=== PATIENT | female | born 1990 | race Caucasian/White ===

== ENCOUNTER 2021-03-20 21:58 | Emergency (ER) | payer OTHER, SELFPAY ==
--- NOTE | ~2021-03-20 | XR_ITS ---
EXAMINATION: XR chest 1V portable INDICATION: Shortness of breath, COVID 19 positive TECHNIQUE: Portable AP chest at 2221 hours COMPARISON: None available FINDINGS: There are minimal airspace opacities of the left lung base. No pleural effusion or pneumoth orax is identified. The cardiomediastinal silhouette is normal. A calcified nodule of the left midlun g zone is consistent with old granulomatous disease. IMPRESSION: 1. Left basilar airspace opacity, consistent with atelectasis versus pneumonia. Reviewed, dictated and finalized at location A.
[2021-03-20 22:04] VITALS: BP 135/96; PULSE 81; RESP 16; O2SAT 100
--- NOTE | 2021-03-20 22:08 | ECG_ITS ---
Measurements Intervals [place] Rate: 73 P: 53 [place]: 164 QRS: 43 QRSD: 87 T: 31 QT: 354 QTc: 392 Interpretive Statements SINUS RHYTHM NORMAL ECG Electronically Signed On 03-21-2021 7:37:18 CDT by Mo Llamas D.O.
[2021-03-20 22:48] LABS: Basophils Percent Auto 0.3 % (0.2-1.2); Eosinophils Percent Auto 1.3 % (0-4.4); Hematocrit 42.5 % (37.0-47.0); Hemoglobin 14.1 g/dL (12.0-15.0); Immature Granulocyte Absolute 0.01 K/mm3 (0.00-0.031); Immature Granulocyte Percent A 0.3 % (0-0.5); Lymphocytes Absolute Auto 1.95 K/mm3 (0.9-3.2); Lymphocytes Percent Auto 60.9 % (18.3-44.2); Mean Corpuscular HGB Conc 33.2 g/dl (32-36); Mean Corpuscular Hemoglobin 28.9 pg (26-34); Mean Corpuscular Volume 87.1 fl (80-100); Mean Platelet Volume 9.6 fl (7.4-10.4); Monocytes Absolute Auto 0.4 K/mm3 (0.1-0.6); Monocytes Percent Auto 12.2 % (2.6-8.5); Neutrophils Absolute Auto 0.8 K/mm3 (1.3-6.7); Platelet Count Result 174 k/mm3 (150-375); Red Blood Count 4.88 M/mm3 (4.2-5.4); Red Cell Distribution Width 11.9 % (11.5-14.5); White Blood Count 3.2 K/mm3 (4.5-10.0)
[2021-03-20 22:56] LABS: Alanine Aminotransferase 60 U/L (4-35); Albumin Level 4.6 g/dL (3.5-5.1); Alkaline Phosphatase 66 U/L (38-126); Anion Gap 11 mmol/L (8-16); Aspartate Amino Transferase 64 U/L (14-36); Bilirubin,Total 0.4 mg/dL (0.2-1.3); Blood Urea Nitrogen 7 mg/dL (7-17); Calcium 9.3 mg/dL (8.4-10.2); Carbon Dioxide 25 mmol/L (22-30); Chloride 104 mmol/L (98-107); Estimated CRCL calculation 146 ml/min; Estimated Glomerular Filt Rate > 60; Glucose 94 mg/dL (65-105); Potassium 3.6 mmol/L (3.4-5.0); Sodium 140 mmol/L (137-145)
--- NOTE | 2021-03-20 22:57 | ED.GENADULT ---
HPI - General Adult General Chief complaint: Upper Respiratory Infection Stated complaint: I have Covid Time Seen by Provider: 03/20/21 22:00 Source: patient History of Present Illness HPI narrative: Patient is a 30 y/o female complaining of moderate SOB starting tonight. There is no alleviating or exacerbating factor. She also has some cough. She had fever 2 days ago, but not today. She test positive for COVID 2 days ago. Related Data Home Medications Medication Instructions Recorded Confirmed metformin mg 03/20/21 Allergies Allergy/AdvReac Type Severity Reaction Status Date / Time No Known Allergies Allergy Unverified 03/20/21 23:09 Review of Systems Constitutional: Constitutional: Denies chills, Denies fever(s), Reports headache(s) and Reports weakness Eyes: Eyes: Denies blurry vision ENT: Reports headache(s) and Denies neck pain Cardiovascular: Cardiovascular: Denies chest pain and Reports dyspnea Respiratory: Respiratory: Reports cough and Reports dyspnea Gastrointestinal: Gastrointestinal: Denies abdominal pain, Denies diarrhea, Denies nausea and Denies vomiting Genitourinary: Genitourinary: Denies hematuria and Denies dysuria Musculoskeletal: Musculoskeletal: Denies back pain and Denies neck pain Neurologic: Reports dizziness, Reports headache(s) and Reports weakness PMFSH Social History Social History Smoking status: Never smoker Alcohol intake: current Exam Const: General: no acute distress and well developed Orientation/consciousness: oriented to person, oriented to place, oriented to time and patient oriented x3 HENMT: Head: normocephalic Ears: external ears normal General nose exam: Normal external nose present Eyes: General: appearance normal, both eyes and all related structures Conjunctivae: conjunctivae normal Neck: Neck: normal visual inspection and full ROM Chest: Chest palpation & inspection: normal inspection of the chest and no tenderness Resp: Effort & Inspection: normal respiratory effort Auscultation: clear to auscultation bilaterally Cardio: Rate: regular rate Rhythm: regular rhythm GI: GI Palp: No abdominal tenderness and Yes Soft to palpation Skin: General skin exam: normal color and turgor normal Neuro: General: oriented to person, oriented to place, oriented to time and patient oriented x3 Cognition (Neuro): normal cognition Extrem: General: normal to inspection, full ROM and no pedal edema Psych: Appearance: grossly normal Mental Status: mental status grossly normal Affect: normal affect Course Vital Signs Vital signs: Vital Signs Pulse Rate 81 03/20/21 22:04 Respiratory Rate 16 03/20/21 22:04 Blood Pressure 135/96 H 03/20/21 22:04 Pulse Oximetry 100 03/20/21 22:04 Pulse Rate 86 03/20/21 23:41 Respiratory Rate 16 03/20/21 23:41 Blood Pressure 115/77 03/20/21 23:41 Pulse Oximetry 98 03/20/21 23:41 Medical Decision Making Vital Signs Vital Signs: Vital Signs Pulse Rate 81 03/20/21 22:04 Respiratory Rate 16 03/20/21 22:04 Blood Pressure 135/96 H 03/20/21 22:04 Pulse Oximetry 100 03/20/21 22:04 Pulse Rate 86 03/20/21 23:41 Respiratory Rate 16 03/20/21 23:41 Blood Pressure 115/77 03/20/21 23:41 Pulse Oximetry 98 03/20/21 23:41 Lab Data Result diagrams: 03/20/21 22:25 03/20/21 22:25 Labs: Lab Results 03/20/21 03/20/21 03/20/21 Range/Units 22:25 22:25 23:13 WBC 3.2 L (4.5-10.0) K/mm3 RBC 4.88 (4.2-5.4) M/mm3 Hgb 14.1 (12.0-15.0) g/dL Hct 42.5 (37.0-47.0) % MCV 87.1 (80-100) fl MCH 28.9 (26-34) pg MCHC 33.2 (32-36) g/dl RDW 11.9 (11.5-14.5) % Plt Count 174 (150-375) k/mm3 MPV 9.6 (7.4-10.4) fl Immature Gran % (Auto) 0.3 (0-0.5) % Neut % (Auto) 25.0 L (45.5-73.1) % Lymph % (Auto) 60.9 H (18.3-44.2) % [place] % (Auto) 1
[2021-03-20 23:16] VITALS: BP 125/83; O2SAT 98
[2021-03-20 23:26] LABS: Add Urine Microscopic? YES; Appearance Urine Cloudy (Clear); Bacteria Urine Trace /hpf; Bilirubin Urine Negative (Negative); Blood Urine Negative (Negative); Color Urine Yellow (Yellow); Glucose Urine UA Negative (Negative); Ketones Urine Negative (Negative); Leukocyte Esterase Ur Negative LEU/UL (Negative); Mucus Urine Rare /lpf; Nitrate Urine Negative (Negative); Protein Urine 1+ mg/dL (Negative); RBC Urine 0-2 /hpf (0-2); Specific Grav Ur 1.016 (1.001-1.035); Squamous Epithelial Cell Urine Many /hpf (Few); Urobilinogen Urine Negative mg/dL (<2.0); WBC Urine 0-3 /hpf
[2021-03-20 23:41] VITALS: BP 115/77; PULSE 86; RESP 16; O2SAT 98
== END 2021-03-20 23:42 | disposition home or self-care (01) ==
PROVIDERS: Emergency Provider Emergency Medicine
DX: U07.1 COVID-19 (principal)
CPT/HCPCS: 36415; 71045; 80053; 81001; 81025; 85025; 93005; 99283